=== PATIENT | female | born 1990 | race Caucasian/White ===

== ENCOUNTER 2021-10-04 09:13 | Emergency (ER) | payer MEDICAID ==
[~2021-10-04] VITALS: Ht 165.1 cm; Wt 104.5 kg
[~2021-10-04 09:13] MED LIST: DOCU-119 PO; NOCURR; VICOT PO
[2021-10-04] MEDS ORDERED: CYCLOBENZAPRINE HCL 10 MG TABLET PO ONE (12:00)
[2021-10-04] MEDS ORDERED: LIDOCAINE 5% TRANSDERMAL PATCH TD ONE (12:00)
[2021-10-04] MEDS ORDERED: KETOROLAC TROMETHAMINE 60 MG/2 ML VIAL IM ONE (12:00)
[2021-10-04 12:20] VITALS: BP 117/67
[2021-10-04] MEDS ORDERED: CYCL-448 PO (13:01)
[2021-10-04] MEDS ORDERED: IBUP-2070 PO (13:01)
== END 2021-10-04 13:10 | disposition home or self-care (01) ==
LOC: EMS 09:13
DX: M54.50 Low back pain, unspecified (principal); G89.29 Other chronic pain; F32.A Depression, unspecified; E11.9 Type 2 diabetes mellitus without complications; Z87.39 Personal history of other diseases of the musculoskeletal system and connective tissue
CPT/HCPCS: 81002; 81025; 96372; 99283; J1885

== ENCOUNTER 2023-04-04 15:34 | Emergency (ER) | payer MEDICAID ==
[~2023-04-04] VITALS: Ht 167.6 cm; Wt 107.3 kg
[~2023-04-04 15:34] MED LIST changes: +CYCL-448 PO; +IBUP-1492 PO
[2023-04-04] MEDS ORDERED: DULO-114 PO (15:38)
[2023-04-04 15:40] VITALS: TEMP 98.2
[2023-04-04] MEDS ORDERED: ONDANSETRON HCL 4 MG/2 ML VIAL IVP ONE (17:15)
[2023-04-04] MEDS ORDERED: KETOROLAC TROMETHAMINE 30 MG/ML VIAL IVP ONE (17:15)
[2023-04-04 17:46] VITALS: BP 136/84; PULSE 73; RESP 16
[2023-04-04 17:50] LABS: BASOPHILS % (AUTO) 0.5 % (0.0-2.0); EOSINOPHILS % (AUTO) 0.9 % (1.0-6.0); HEMATOCRIT 39.9 % (36-46); HEMOGLOBIN 13.8 g/dL (12.0-16.0); LYMPHOCYTES % (AUTO) 31.2 % (22.0-44.0); MEAN CORPUSCULAR HEMOGLOBIN 29.7 pg (26.0-34.0); MEAN CORPUSCULAR HGB CONC 34.6 G/dL (31.0-37.0); MEAN CORPUSCULAR VOLUME 86 fL (80-100); MONOCYTES # (AUTO) 0.6 K/uL (0.1-1.0); MONOCYTES % (AUTO) 6.3 % (2.0-9.0); NEUTROPHILS # (AUTO) 5.9 K/uL (1.8-7.7); NEUTROPHILS % (AUTO) 61.1 % (40.0-70.0); PLATELET COUNT (AUTO) 412 K/uL (150-450); RED BLOOD CELL COUNT(AUTO) 4.65 MIL/uL (4.00-5.20); RED CELL DISTRIBUTION WIDTH 13.4 % (11.5-14.5); WHITE BLOOD COUNT (AUTO) 9.6 K/uL (4.5-11.0)
[2023-04-04 18:02] LABS: GLUCOMETER DEV NAME(LOC) ER.6; GLUCOSE,POINT OF CARE 83 MG/DL (70-110)
[2023-04-04 18:03] LABS: ALANINE AMINOTRANSFERASE 36 U/L (12-78); ALBUMIN 3.5 g/dL (3.4-5.0); ALKALINE PHOSPHATASE 83 U/L (46-116); ASPARTATE AMINOTRANSFERASE 21 U/L (15-37); BILIRUBIN,TOTAL 0.4 mg/dL (0.1-1.0); CARBON DIOXIDE 29 mmol/L (22-29); CREATININE 0.91 mg/dL (0.60-1.30); GLOMERULAR FILTR. RATE CALC > 60 mL/min (>60); GLUCOSE,RANDOM 90 mg/dL (70-110); TOTAL PROTEIN, SERUM 8.3 g/dL (6.4-8.2); UREA NITROGEN, BLOOD 22 mg/dL (7-18)
[2023-04-04 18:11] LABS: ANION GAP 7 mmol/L (8-16); CHLORIDE 105 mmol/L (98-107); POTASSIUM 3.7 mmol/L (3.5-5.1); SODIUM SERUM 141 mmol/L (136-145)
[2023-04-04 18:18] LABS: LIPASE 51 U/L (16-77)
[2023-04-04] MEDS ORDERED: ONDA-104 PO (18:47)
[2023-04-04] MEDS ORDERED: ACET-66 PO (18:47)
[2023-04-04] MEDS ORDERED: OMEP20 PO (18:47)
== END 2023-04-04 19:28 | disposition home or self-care (01) ==
LOC: EMS 15:35
DX: K21.9 Gastro-esophageal reflux disease without esophagitis (principal); E11.9 Type 2 diabetes mellitus without complications; R07.89 Other chest pain; F32.A Depression, unspecified
CPT/HCPCS: 99285; 96374; 71045; 96375; 80053; 82962; 83690; 84703; 85025; 85379; 36415; 93005; J1885; J2405

== ENCOUNTER 2023-06-11 17:59 | Emergency (ER) | payer MEDICAID ==
[~2023-06-11] VITALS: Ht 167.6 cm; Wt 110.9 kg
[~2023-06-11 17:59] MED LIST changes: +ACET-66 PO; -CYCL-448 PO; -DOCU-119 PO; +DULO-114 PO; -NOCURR; +OMEP20 PO; +ONDA-104 PO; -VICOT PO
[2023-06-11 18:01] VITALS: TEMP 99.3
[2023-06-11 18:21] LABS: GLUCOMETER DEV NAME(LOC) ER.6; GLUCOSE,POINT OF CARE 99 MG/DL (70-110)
[2023-06-11] MEDS ORDERED: TRAZ-252 PO (18:22)
[2023-06-11] MEDS ORDERED: FLUO20CA36 PO (18:22)
[2023-06-11] MEDS ORDERED: VENL-67 PO (18:22)
[2023-06-11] MEDS ORDERED: PROP20TA96 PO (18:22)
[2023-06-11 19:24] LABS: INFLUENZA A-RTPCR,COMBO NEGATIVE (NEGATIVE); INFLUENZA B-RTPCR,COMBO NEGATIVE (NEGATIVE); RESPIRATORY SYNCYTIAL VRS-PCR NEGATIVE (NEGATIVE); SARS COVID19 RTPCR, COMBO NEGATIVE (NEGATIVE)
[2023-06-11 20:15] VITALS: BP 138/85; PULSE 84; RESP 18
== END 2023-06-11 20:27 | disposition home or self-care (01) ==
LOC: EMS 18:00
DX: J06.9 Acute upper respiratory infection, unspecified (principal); F32.A Depression, unspecified; E11.9 Type 2 diabetes mellitus without complications; Z20.822 Contact with and (suspected) exposure to COVID-19
CPT/HCPCS: 99283; 0241U; 82962; 87430

== ENCOUNTER 2024-04-12 19:33 | Emergency (ER) | payer MEDICAID ==
[~2024-04-12] VITALS: Ht 165.1 cm; Wt 108.2 kg
[~2024-04-12 19:33] MED LIST changes: -DULO-114 PO; +FLUO-418 PO; -OMEP20 PO; -ONDA-104 PO; +PROP20TA96 PO; +TRAZ-252 PO; +VENL-67 PO
[2024-04-12 19:36] VITALS: TEMP 98.3
[2024-04-12 20:14] LABS: BASOPHILS % (AUTO) 0.6 % (0.0-2.0); EOSINOPHILS % (AUTO) 1.5 % (1.0-6.0); HEMATOCRIT 41.1 % (36-46); HEMOGLOBIN 13.9 g/dL (12.0-16.0); LYMPHOCYTES # (AUTO) 3.2 K/uL (1.0-4.8); LYMPHOCYTES % (AUTO) 25.9 % (22.0-44.0); MEAN CORPUSCULAR HEMOGLOBIN 28.6 pg (26.0-34.0); MEAN CORPUSCULAR HGB CONC 33.7 G/dL (31.0-37.0); MEAN CORPUSCULAR VOLUME 85 fL (80-100); MONOCYTES # (AUTO) 0.8 K/uL (0.1-1.0); MONOCYTES % (AUTO) 6.7 % (2.0-9.0); NEUTROPHILS # (AUTO) 8.1 K/uL (1.8-7.7); NEUTROPHILS % (AUTO) 65.3 % (40.0-70.0); PLATELET COUNT (AUTO) 415 K/uL (150-450); RED BLOOD CELL COUNT(AUTO) 4.86 MIL/uL (4.00-5.20); RED CELL DISTRIBUTION WIDTH 13.8 % (11.5-14.5); WHITE BLOOD COUNT (AUTO) 12.4 K/uL (4.5-11.0)
[2024-04-12 20:20] VITALS: BP 141/82; PULSE 105; RESP 18; O2SAT 97
[2024-04-12 20:20] LABS: ANION GAP 11 mmol/L (8-16); CALCIUM, TOTAL 8.7 mg/dL (8.8-10.5); CARBON DIOXIDE 27 mmol/L (22-29); CHLORIDE 103 mmol/L (98-107); CREATININE 0.72 mg/dL (0.60-1.30); GLOMERULAR FILTR. RATE CALC > 60 mL/min (>60); GLUCOSE,RANDOM 83 mg/dL (70-110); POTASSIUM 3.7 mmol/L (3.5-5.1); SODIUM SERUM 141 mmol/L (136-145); UREA NITROGEN, BLOOD 16 mg/dL (7-18)
== END 2024-04-12 20:57 | disposition home or self-care (01) ==
LOC: EMS 19:33
DX: E11.649 Type 2 diabetes mellitus with hypoglycemia without coma (principal); F32.A Depression, unspecified; Z79.899 Other long term (current) drug therapy
CPT/HCPCS: 80048; 84703; 85025; 99283

== ENCOUNTER 2024-07-13 17:25 | Emergency (ER) | payer MEDICAID ==
[~2024-07-13] VITALS: Ht 165.1 cm; Wt 110.0 kg
[2024-07-13 17:35] VITALS: TEMP 98.5
[2024-07-13 17:42] LABS: COVID AG,FIA SOURCE NASAL SWAB
[2024-07-13 18:04] LABS: INFLUENZA TYPE A NEGATIVE FOR TYPE A (NEGATIVE); INFLUENZA TYPE B NEGATIVE FOR TYPE B (NEGATIVE); SARS-COV2 (COVID) ANTIGEN,FIA Negative (Negative)
[2024-07-13 18:25] LABS: APPEARANCE,URINE CLEAR (CLEAR); BILIRUBIN,URINE NEGATIVE (NEGATIVE); COLOR,URINE LIGHT YELLOW (YELLOW); GLUCOSE, URINE (UA) NEGATIVE (NEGATIVE); KETONES,URINE NEGATIVE (NEGATIVE); LEUKOCYTE ESTERASE ,URINE NEGATIVE (NEGATIVE); NITRATE,URINE NEGATIVE (NEGATIVE); OCCULT BLOOD,URINE TRACE (NEGATIVE); PH,URINE 5.5 (5.0-8.0); PROTEIN,URINE TRACE mg/dL (NEGATIVE); SPECIFIC GRAVITIY, URINE 1.022 (1.003-1.030); UROBILINOGEN,URINE <=1.0 mg/dL (<=1.0)
[2024-07-13 18:33] LABS: BACTERIA,URINE Few /HPF (None Seen); SQUAMOUS EPITHELIAL CELL,UR Moderate /LPF (None Seen)
[2024-07-13 18:34] LABS: WBC,URINE 0-2 /HPF (0-5)
[2024-07-13] MEDS: ONDANSETRON 4 MG RAPDIS TABLET PO ONE (18:35)
[2024-07-13] MEDS ORDERED: OMEP20CA12 PO (18:36)
[2024-07-13] MEDS ORDERED: FLUO40CA PO (18:36)
[2024-07-13] MEDS ORDERED: SEMA2PEN SQ (18:36)
[2024-07-13] MEDS ORDERED: FLUT16H NASAL (18:36)
[2024-07-13 18:50] LABS: HCG,QUAL URINE NEGATIVE (NEGATIVE)
[2024-07-13 19:21] VITALS: BP 127/96; PULSE 97; RESP 20; O2SAT 99
[2024-07-13] MEDS: ONDANSETRON HCL 4 MG/2 ML VIAL IVP ONE (19:44)
[2024-07-13 19:56] LABS: BASOPHILS % (AUTO) 0.4 % (0.0-2.0); HEMATOCRIT 45.2 % (36-46); HEMOGLOBIN 15.1 g/dL (12.0-16.0); LYMPHOCYTES # (AUTO) 3.9 K/uL (1.0-4.8); LYMPHOCYTES % (AUTO) 22.9 % (22.0-44.0); MEAN CORPUSCULAR HEMOGLOBIN 28.7 pg (26.0-34.0); MEAN CORPUSCULAR HGB CONC 33.3 G/dL (31.0-37.0); MEAN CORPUSCULAR VOLUME 86 fL (80-100); MONOCYTES # (AUTO) 1.2 K/uL (0.1-1.0); MONOCYTES % (AUTO) 7.1 % (2.0-9.0); NEUTROPHILS # (AUTO) 11.6 K/uL (1.8-7.7); NEUTROPHILS % (AUTO) 68.6 % (40.0-70.0); PLATELET COUNT (AUTO) 397 K/uL (150-450); RED BLOOD CELL COUNT(AUTO) 5.25 MIL/uL (4.00-5.20); RED CELL DISTRIBUTION WIDTH 14.3 % (11.5-14.5)
[2024-07-13 19:59] LABS: ANION GAP 11 mmol/L (8-16); CARBON DIOXIDE 25 mmol/L (22-29); CHLORIDE 102 mmol/L (98-107); CREATININE 0.66 mg/dL (0.60-1.30); GLOMERULAR FILTR. RATE CALC > 60 mL/min (>60); GLUCOSE,RANDOM 86 mg/dL (70-110); POTASSIUM 3.3 mmol/L (3.5-5.1); SODIUM SERUM 138 mmol/L (136-145); UREA NITROGEN, BLOOD 17 mg/dL (7-18)
[2024-07-13 20:00] LABS: LIPASE 40 U/L (16-77)
[2024-07-13 20:17] LABS: HCG,QUANTITATIVE < 1 mIU/mL (0-6)
[2024-07-13] MEDS: SODIUM CHLORIDE 0.9% 2,000 ML IV ONE (20:47)
[2024-07-13] MEDS: METOCLOPRAMIDE HCL 5 MG/ML 2 ML VIAL IVP ONE (20:47)
[2024-07-13] MEDS: LORazepam 2 MG/ML VIAL IVP ONE (20:48)
[2024-07-13] MEDS: DOCUSATE SODIUM 100 MG CAPSULE PO SCH (20:58)
[2024-07-13] MEDS ORDERED: ONDANSETRON HCL 4 MG/2 ML VIAL IVP PRN (21:00)
[2024-07-13] MEDS ORDERED: RINGERS SOLUTION,LACTATED 1,000 ML IV SCH (21:00)
[2024-07-13] MEDS ORDERED: ACETAMINOPHEN 325 MG TABLET PO PRN (21:00)
[2024-07-13] MEDS ORDERED: METOCLOPRAMIDE HCL 5 MG/ML 2 ML VIAL IVP PRN (21:00)
[2024-07-13] MEDS ORDERED: ONDA-104 PO (21:19)
[2024-07-14] MEDS ORDERED: HEPARIN SODIUM,PORCINE 5,000 UNITS/ML VIAL SQ SCH
[2024-07-17] MEDS ORDERED: AMOX-457 PO (16:16)
[2024-07-17] MEDS ORDERED: METR500 PO (16:16)
== END 2024-07-13 21:32 | disposition left against medical advice (07) ==
LOC: EMS 17:28 → EDH 20:47 → UNDOADMIN 20:47 → EDH 21:31 → UNDOADMIN 21:31 → EMS 21:32
DX: R11.2 Nausea with vomiting, unspecified (principal); D72.829 Elevated white blood cell count, unspecified; E87.6 Hypokalemia; Z20.822 Contact with and (suspected) exposure to COVID-19
CPT/HCPCS: 99284; 96374; 96361; 96375; 87426; 80048; 81001; 83690; 84702; 84703; 85025; 87804; 36415; J2060; J2765; J2405; J7120; J7030; 99285; G0378

== ENCOUNTER 2024-11-06 13:48 | Emergency (ER) | payer MEDICAID ==
[~2024-11-06] VITALS: Ht 165.1 cm; Wt 109.1 kg
[~2024-11-06 13:48] MED LIST changes: -ACET-66 PO; +AMOX-457 PO; -FLUO-418 PO; +FLUO40CA PO; +FLUT16H NASAL; -IBUP-1492 PO; +METR500 PO; +OMEP20CA12 PO; +ONDA-104 PO; -PROP20TA96 PO; +SEMA2PEN SQ; -TRAZ-252 PO; -VENL-67 PO
[2024-11-06 13:53] VITALS: TEMP 98.2
[2024-11-06] MEDS: METOCLOPRAMIDE HCL 5 MG/ML 2 ML VIAL IVP ONE (15:56)
[2024-11-06] MEDS: DEXAMETHASONE SOD PHOS 4 MG/ML 5 ML VIAL IVP ONE (15:56)
[2024-11-06] MEDS: ONDANSETRON HCL 4 MG/2 ML VIAL IVP ONE (15:57)
[2024-11-06] MEDS: KETOROLAC TROMETHAMINE 30 MG/ML VIAL IVP ONE (15:57)
[2024-11-06] MEDS ORDERED: ALBU18HF12 IH (15:59)
[2024-11-06] MEDS ORDERED: SUMA6PEN SQ (15:59)
[2024-11-06] MEDS ORDERED: VORT10TA PO (15:59)
[2024-11-06 16:06] LABS: PLATELET COUNT (AUTO) 445 K/uL (150-450); RED BLOOD CELL COUNT(AUTO) 5.06 MIL/uL (4.00-5.20); RED CELL DISTRIBUTION WIDTH 14.1 % (11.5-14.5); WHITE BLOOD COUNT (AUTO) 12.6 K/uL (4.5-11.0)
[2024-11-06 16:11] LABS: CALCIUM, TOTAL 9.1 mg/dL (8.8-10.5); CREATININE 0.72 mg/dL (0.60-1.30); GLOMERULAR FILTR. RATE CALC > 60 mL/min (>60); GLUCOSE,RANDOM 87 mg/dL (70-110); SODIUM SERUM 140 mmol/L (136-145); UREA NITROGEN, BLOOD 14 mg/dL (7-18)
[2024-11-06] MEDS: VALPROATE SODIUM 500 MG in DEXTROSE 5%-WATER 50 ML IV ONE (16:32)
[2024-11-06] MEDS: SODIUM CHLORIDE 0.9% 2,000 ML IV ONE (16:33)
[2024-11-06 17:36] VITALS: BP 133/84; PULSE 84; RESP 18; O2SAT 99
[2024-11-06] MEDS ORDERED: HYDR-4062 PO (17:44)
== END 2024-11-06 17:58 | disposition home or self-care (01) ==
LOC: EMS 13:49
DX: G43.909 Migraine, unspecified, not intractable, without status migrainosus (principal); E11.9 Type 2 diabetes mellitus without complications; F32.A Depression, unspecified; Z79.85 Long-term (current) use of injectable non-insulin antidiabetic drugs; Z79.899 Other long term (current) drug therapy
CPT/HCPCS: 99284; 96375; 96365; 80048; 84703; 85025; 36415; 82962; J1885; J1100; J1200; J2765; J2405; J3490; J7060; J7030

== ENCOUNTER 2025-03-19 18:07 | Emergency (ER) | payer MEDICAID ==
[~2025-03-19] VITALS: Ht 165.1 cm; Wt 110.0 kg
[~2025-03-19 18:07] MED LIST changes: +ALBU18HF12 IH; -AMOX-457 PO; -FLUO40CA PO; +HYDR-4062 PO; -METR500 PO; +SUMA6PEN SQ; +VORT10TA PO
[2025-03-19] MEDS ORDERED: DULO30CA62 PO (18:15)
[2025-03-19 18:33] LABS: PLATELET COUNT (AUTO) 381 K/uL (150-450); RED BLOOD CELL COUNT(AUTO) 5.16 MIL/uL (4.00-5.20); RED CELL DISTRIBUTION WIDTH 13.9 % (11.5-14.5); WHITE BLOOD COUNT (AUTO) 11.1 K/uL (4.5-11.0)
[2025-03-19 18:44] LABS: CALCIUM, TOTAL 8.6 mg/dL (8.8-10.5); CREATININE 0.67 mg/dL (0.60-1.30); GLOMERULAR FILTR. RATE CALC > 60 mL/min (>60); GLUCOSE,RANDOM 120 mg/dL (70-110); SODIUM SERUM 138 mmol/L (136-145); UREA NITROGEN, BLOOD 17 mg/dL (7-18)
[2025-03-19 18:48] LABS: ERYTHROCYTE SEDIMENTATION RATE 9 MM/HR (0-20)
[2025-03-19 18:55] LABS: ASPARTATE AMINOTRANSFERASE 34 U/L (15-37); HCG,QUANTITATIVE < 1 mIU/mL (0-6); TOTAL PROTEIN, SERUM 8.0 g/dL (6.4-8.2)
[2025-03-19] MEDS: SODIUM CHLORIDE 0.9% 1,000 ML IV ONE (19:46)
[2025-03-19] MEDS: METOCLOPRAMIDE HCL 5 MG/ML 2 ML VIAL IVP ONE (19:46)
[2025-03-19] MEDS: MAGNESIUM SULFATE 1 GM in DEXTROSE 5%-WATER 50 ML IV ONE (19:46)
[2025-03-19 22:20] VITALS: BP 170/112; PULSE 96; RESP 16; TEMP 98.4; O2SAT 99
== END 2025-03-19 22:36 | disposition home or self-care (01) ==
LOC: EMS 18:07
DX: G43.909 Migraine, unspecified, not intractable, without status migrainosus (principal); F32.A Depression, unspecified; E11.9 Type 2 diabetes mellitus without complications; R10.20 Pelvic and perineal pain unspecified side; Z79.899 Other long term (current) drug therapy
CPT/HCPCS: 99285; 96365; 70450; 96375; 96366; 80048; 80076; 84702; 85025; 85610; 85651; 36415; J1200; J2765; J7060; J3475